=== PATIENT | female | born 1965 | race African-American/Black ===

== ENCOUNTER 2022-11-02 18:46 | Emergency (ER) | payer OTHER ==
[~2022-11-02] VITALS: Ht 170.2 cm; Wt 49.1 kg
[2022-11-02 21:22] LABS: ANION GAP 7 mmol/L (8-16); CALCIUM, TOTAL 9.4 mg/dL (8.8-10.5); CARBON DIOXIDE 31 mmol/L (22-29); CHLORIDE 102 mmol/L (98-107); CREATININE 0.91 mg/dL (0.60-1.30); GLUCOSE,RANDOM 93 mg/dL (70-110); POTASSIUM 4.2 mmol/L (3.5-5.1); SODIUM SERUM 140 mmol/L (136-145); UREA NITROGEN, BLOOD 20 mg/dL (7-18)
[2022-11-02 21:24] LABS: GLOMERULAR FILTR. RATE CALC > 60 mL/min (>60)
[2022-11-02 21:43] VITALS: BP 145/89
== END 2022-11-02 22:44 | disposition home or self-care (01) ==
LOC: EMS 18:49 → EDBD 18:49 → EMS 22:44
DX: M62.838 Other muscle spasm (principal); F12.90 Cannabis use, unspecified, uncomplicated; Z86.73 Personal history of transient ischemic attack (TIA), and cerebral infarction without residual deficits
CPT/HCPCS: 80048; 83735; 99283